=== PATIENT | male | born 1955 | race Caucasian/White ===

== ENCOUNTER 2022-04-15 08:00 | Observation (INO) ==
--- NOTE | 2022-03-16 14:12 | PAT Medication Instructions ---
Medication Instructions Date of Service March 16, 2022 Home Medications Medication Instructions Recorded Sadiq Timmons #1 ea 02/23/22 amlodipine 10 mg tablet 10 mg PO QAM fenofibrate nanocrystallized 145 mg tablet 145 mg PO QAM losartan 100 mg tablet 100 mg PO QAM montelukast 10 mg tablet 10 mg PO QAM naproxen sodium 220 mg capsule 220 mg PO BID PRN Pain omeprazole 20 mg capsule,delayed release 20 mg PO DAILY pravastatin 40 mg tablet 40 mg PO QAM albuterol sulfate 90 mcg/actuation aerosol inhaler 2 inh inhalation Q4H PRN Wheezing cetirizine 10 mg tablet 10 mg PO HS STOP taking 48 hours before surgery fenofibrate nanocrystallized 145 mg tablet 145 mg PO QAM DO NOT take the morning of surgery losartan 100 mg tablet 100 mg PO QAM montelukast 10 mg tablet 10 mg PO QAM Take morning of surgery With a small sip of water, OTHERWISE NOTHING TO EAT OR DRINK AFTER MIDNIGHT: amlodipine 10 mg tablet 10 mg PO QAM omeprazole 20 mg capsule,delayed release 20 mg PO DAILY pravastatin 40 mg tablet 40 mg PO QAM albuterol sulfate 90 mcg/actuation aerosol inhaler 2 inh inhalation Q4H PRN Wheezing (use if needed; please bring rescue inhaler with you to hospital day of surgery if possible) Take evening before surgery albuterol sulfate 90 mcg/actuation aerosol inhaler 2 inh inhalation Q4H PRN Wheezing (if needed) cetirizine 10 mg tablet 10 mg PO HS Other Notes If you have any questions please call us at [phone] or [phone] or [phone] or [phone]
--- NOTE | 2022-03-23 10:59 | Anesthesiology Consultation ---
Date of Service March 23, 2022 Assessment & Plan (1) Encounter for pre-operative examination: - COVID screening: Per assessment on 03/23: No known COVID-19 positive contacts or current COVID-19 related symptoms. Travel screen negative. Patient vaccinated. At surgeon discretion if preop Covid testing being done. - Outpatient joint assessment: Pt currently scheduled for inpatient pathway. If surgeon requests review for outpatient joint pathway, patient is not recommended candidate for outpatient joint program from anesthesia standpoint. Chart Review Chart Review: Acceptable Risk for Surgery and Patient seen in Pre Admission Testing Teaching & Discussion Pre-Anesthesia Teaching/Discussion Notes: Instructed NPO after midnight before surgery,except medications with 15 cc of water. Medication instructions provided according to the PAT guidelines. History Surgery Operation Date: 04/15/22 11:00 Proposed Procedures p Left Total Knee Arthroplasty - Sai Pressley MD Height/Weight Height: 5 ft 10 in Weight: 124.7 kg Allergies Allergy/AdvReac Type Severity Reaction Status Date / Time No Known Allergies Allergy Verified 03/04/22 09:49 Medications Home Medications Medication Instructions Recorded Confirmed Last Taken Wheeled Walker #1 ea 02/23/22 02/23/22 Unknown amlodipine 10 mg tablet 10 mg PO QAM 02/23/22 03/04/22 Unknown fenofibrate nanocrystallized 145 145 mg PO QAM 02/23/22 03/04/22 Unknown mg tablet losartan 100 mg tablet 100 mg PO QAM 02/23/22 03/04/22 Unknown montelukast 10 mg tablet 10 mg PO QAM 02/23/22 03/04/22 Unknown naproxen sodium 220 mg capsule 220 mg PO BID PRN Pain 02/23/22 03/04/22 Unknown omeprazole 20 mg capsule,delayed 20 mg PO DAILY 02/23/22 03/04/22 Unknown release pravastatin 40 mg tablet 40 mg PO QAM 02/23/22 03/04/22 Unknown albuterol sulfate 90 mcg/actuation 2 inh inhalation Q4H PRN Wheezing 03/04/22 03/04/22 Unknown aerosol inhaler cetirizine 10 mg tablet 10 mg PO HS 03/04/22 03/04/22 Unknown Past Medical History Medical History Asthma Stable Diabetes Per [facility] PCP records, diet controlled DM hgba1c 6.6% 09/2021 GERD (gastroesophageal reflux disease) High cholesterol Hypertension Left knee DJD Neuropathy Legs Obesity Sleep apnea CPAP (compliant) Exercise / Class Metabolic Activity II 4-5 Yardwork/Stairs/Walk up hill Past Family History Family History Other Heart disease Past Surgical History Surgical History H/O arthroscopy of left knee History of bilateral carpal tunnel release History of cataract surgery R/L History of colonoscopy History of esophagogastroduodenoscopy (EGD) History of nasal surgery History of shoulder surgery R/L Hx laparoscopic cholecystectomy Past Anesthesia History No Family Hx of Anesthesia Complications and Other ("Combative" with anesthesia emergence with cholecystectomy) History of PONV No Hx of PONV and No Hx of Motion Sickness Social History Smoking Status: Current every day smoker tobacco type: pipe Smoking cigarettes per day: Smokes pipe daily Do You Dip or Chew Tobacco: No Hx Alcohol Use: Yes (Occasional) Hx Substance Use: No Review of Systems Chronic post nasal drip x several years since deviated septum repair- results in chronic, intermittent cough. Patient denies chest pain, shortness of breath, dyspnea on exertion, fever, chills, wheezing, palpitations. Physical Exam Vital Signs VITALS BP 157/75 P 74 TEMP 98.4 SP02 94%RA RESP 16 PHYSICAL Full cervical extension range of motion. Full TMJ range of motion. TMD 3.5 finger breaths Mallampati Score 3 Dentition: missing sides Lungs: clear throughout to auscultation Cardiac: regular rate and rhythm, no murmurs noted Spine: normal Carotid arteries: negative bruit Extremities: no edema Thick neck Lab Results Anesthesia Preop Results Results Anesthesia Widget: WBC 7.88 K/ul (4.8-10.8) 03/23/22 Hgb 14.2 g/dl (14.0-18.0) 03/23/22 Hct 41.9 % (40.1-51.0) 03/23/22 Plt 216 K/uL (130-400) 03/23/22 Na 137 mmol/L (136-145) 03/23/22 K 3.7 mmol/L (3.5-5.1) 03/23/22 Cl 102 mmol/L (98-107) 03/23/22 CO2 27 mmol/L (21-32) 03/23/22 BUN 16 mg/dl (6-23) 03/23/22 Creat 0.99 mg/dl (0.6-1.4) 03/23/22 Glucose Level 226 mg/dl (70-99(Fasting)) H 03/23/22 PT 10.9 Seconds (9.0-12.0) 03/23/22 PTT 26.5 Seconds (21.0-31.0) 03/23/22 INR 1.0 (0.9-1.1) 03/23/22 Blood Type B Positive 03/23/22 Antibody Screen NEGATIVE 03/23/22 Testing Laboratory Results 09/25/21 HGBA1C 6.6% Electrocardiogram Date: 03/23/22 Findings: + NSR @ (79) Chest X-Ray Date: 03/23/22 Findings: + NAD COVID-19 Risk Screen Screening Information COVID-19 Screen Date: 03/23/22 Exposure 21 Days Family/Household +COVID Last 21 Days: No Exposure 10 Days Any COVID Exposure Last 10 Days: No Symptoms Last 10 Days Experienced COVID Sx Last 10 Days: No + COVID 0-90 Days COVID + in Last 0-90 Days: No
--- NOTE | 2022-04-11 15:52 | History and Physical Report ---
DATE OF ADMISSION: 04/15/2022. CHIEF COMPLAINT: Persistent left knee pain and discomfort. HISTORY OF PRESENT ILLNESS: The patient is a 67-year-old gentleman who now presents for surgical brooke atment of his left knee. He has got a gradual progressive increased pain and discomfort in his left knee over the past 5 years. He did have his knee scoped by Dr. Oreilly back in 2008. It helped him for about a year and describes mostly medial and anterior pain. He takes Aleve with minimal b enefit. He now presents specifically for surgical treatment. He has got chronic pain and just wants to have this fixed. PAST MEDICAL HISTORY: 1. Hypertension. 2. Elevated cholesterol. PAST SURGICAL HISTORY: Includes; 1. Nasal surgery. 2. Bilateral carpal tunnel release. 3. Right shoulder surgery. 4. Left knee scope in 2008. 5. Right wrist surgery. 6. Cholecystectomy. 7. Fatty tumor removed from his colon, 2015. 8. Left shoulder surgery, 2018 9. Cataract surgery. ALLERGIES: None. CURRENT MEDICATIONS: 1. Naproxen. 2. Omeprazole. 3. Montelukast. 4. Fenofibrate. 5. Losartan. 6. Amlodipine. 7. Pravastatin. SOCIAL HISTORY: A 67-year-old male. Lives in [place]. He is retired. He used to work in [employer]. . Rare alcohol intake. Smokes a pipe several times a day. FAMILY HISTORY: Significant for heart disease. REVIEW OF SYSTEMS: Negative for diabetes, neurologic problem, vascular problem, or bleeding disorder s. No chest pain or shortness of breath. No DVT or PE. He does smoke a pipe. PHYSICAL EXAMINATION: GENERAL: Shows a healthy, pleasant middle-aged male. Looks to be in pretty good health. HEENT: Benign. NECK: Supple. No lymphadenopathy. LUNGS: Clear to auscultation. HEART: Regular rate and rhythm. ABDOMEN: Soft, nontender, nondistended. EXTREMITIES: Grossly neurovascularly intact except as follows. Examination of the left knee reveals the patient ambulates with a slight bit of a limp. He has got v arus alignment to his knee with a little bit of varus thrust with weightbearing. He has got bony hyp ertrophy medially. Small knee effusion. Well-healed arthroscopic portal sites. Range of motion is about 5-125. No instability. X-RAYS: X-rays of left knee are reviewed. It shows advanced left knee degenerative joint disease. He has got tricompartment disease. He has got osteophytes, primarily medially. He has got complete loss of medial joint space. A little bit of subluxation of his patella. It does look like his probably translated a little bit anterior on the femur. ASSESSMENT: A 67-year-old male with a chronic ACL deficient knee and advanced knee arthritis. He does have a his tory of knee arthroscopy in the past. He failed conservative measures and would like to have his kne e replaced. PLAN: We will take him to the operating room and do left total knee replacement. Risks and benefits of procedure were explained to the patient and include but not limited to DVT, PE, , infection, neurological injury, vascular injury, bleeding problem, pain, limited motion, stiffness, failure to relieve symptoms, incomplete relief of symptoms, etc. The patient understands and desires to proceed . Informed consent was obtained. His blood glucose was high on his preoperative lab testing. We have him get together with his medica l doctor to get this under better control. Job ID: [id number]
[~2022-04-15 08:00] MED LIST: ACETAMINOPHEN 500 MG TAB PO SCH; BUPIVACAINE 0.5 % 5 MG/1 ML PF 10ML VIAL ONE; BUPIVACAINE LIPOSOME/PF 266 MG, BUPIVACAINE/EPINEPHRINE 50 ML, SODIUM CHLORIDE 0.9% 30 ... INFIL SCH; CeleBREX 200 MG CAP PO SCH; FAMOTIDINE 20 MG TAB PO SCH; LR 500ML BOLUS, THEN 15ML/HR IV SCH; LR 60ML/HR IV SCH; METOCLOPRAMIDE HCL 10 MG TABLET PO SCH; ROPIVACAINE 0.5% 5 MG/ML 30 ML VIAL ONE; Scopolamine 1 MG TDSY TD SCH; TRANEXAMIC ACID 1,000 MG **IV Intra-op IV SCH
--- NOTE | 2022-04-15 08:39 | History & Physical Bridge Note ---
Date of Service April 15, 2022 History & Physical Bridge Note I have examined the patient, reviewed the History & Physical and in the interval since the performance of the History & Physical I have noted the following changes of clinical significance: no changes noted
[2022-04-15] MEDS ORDERED: KETOROLAC 30 MG/ML VIAL IV PRN (09:41)
[2022-04-15] MEDS ORDERED: ePHEDrine sulfate 50 MG/ML AMP IV PRN (09:41)
[2022-04-15] MEDS ORDERED: ONDANSETRON INJ 2 MG/ML 2 ML VIAL IV PRN ×2 (09:41→14:10)
[2022-04-15] MEDS ORDERED: ATROPINE SULFATE 0.1 MG/ML 10ML SYR IV PRN (09:41)
[2022-04-15] MEDS ORDERED: HYDROmorphone INJ 1 MG/ML SYRINGE IV PRN ×2 (09:41→14:10)
[2022-04-15] MEDS ORDERED: MIDAZOLAM HCL 1 MG/ML 2ML VIAL ONE ×2 (10:10→10:13)
[2022-04-15] MEDS ORDERED: fentaNYL citrate 100 MCG/2 ML VIAL ONE (10:10)
[2022-04-15] MEDS ORDERED: PROPOFOL IV EMULSION 10 MG/ML 20 ML VIAL IV ONE ×6 (10:10→11:30)
[2022-04-15] MEDS ORDERED: BUPIVACAINE LIPOSOME 1.3% 266 MG/20 ML VIAL ONE (10:27)
[2022-04-15] MEDS ORDERED: BUPIVACAINE/EPINEPHRINE 0.25% 1:200,000 30 ML VIAL ONE (10:27)
[2022-04-15] MEDS ORDERED: SODIUM CHLORIDE 0.9% PF 50 ML VIAL ONE (10:27)
[2022-04-15] MEDS ORDERED: GLYCOPYRROLATE 0.2 MG/ML VIAL ONE (10:55)
[2022-04-15] MEDS ORDERED: LIDOCAINE 2% MPF LOCAL 5 ML VIAL INFIL ONE (10:56)
[2022-04-15] MEDS ORDERED: PHENYLEPHRINE HCL 10 MG/ML VIAL ONE (12:07)
--- NOTE | 2022-04-15 12:33 | Operative Report ---
PG Post Operative Report Pre & Post Diagnosis Operation Date: 04/15/22 10:40 Pre-Op Diagnosis: Left Knee Degenerative Joint Disease Post-Op Diagnosis: Left Knee Degenerative Joint Disease I identified the patient and participated in the time-out.: Yes Procedure Operation Date: 04/15/22 10:40 Actual Procedures p Left Total Knee Arthroplasty(Left) - Sai Pressley MD Surgeon Sai Pressley MD Semiconductor Processing Technician Mauricio Izaguirre PA-C Estimated Blood Loss 50 Findings Consistent with Post-Op Diagnosis Operative findings were advanced left knee DJD. He had extensive grade 4 [id number] disease of the medial and patellofemoral compartments. Moderate soft tissue envelope. Osteophytes in all 3 compartments. Moderate-sized joint effusion. Fluids 1200 cc Specimens Left knee sent for pathology Drains None Anesthesia Type Spinal MAC Complications none Disposition Accompanied Patient To Recovery: No Indications Patient is a 67-year-old gentleman is had a long history of left knee pain discomfort describes gotten worse over the past several years. He has been through extensive conservative treatment which became less successful over time. He elected proceed with total knee arthroplasty. Description of Procedure Operative implants consist of: 1 Biomet Vanguard size 70 left posterior stabilized femoral component. 2. Biomet size 79 tibial tray. 3. 10 mm posterior stabilized polyethylene insert. 4. 31 x 8 all Paller patella. The patient was taken the operating, identified, and placed on the operating table supine position protectors were properly padded. IV antibiotics by anesthesia team. A spinal anesthetic and abductor canal block had been provided in the holding area. Oliver catheter was placed in sterile fashion. Left atrium was then placed in the left lower extremity then prepped draped in usual sterile fashion. The left leg was elevated exsanguinated with use of an Esmarch and the tourniquet was set at 300 mmHg. An anterior approach to the left knee was then performed through a longitudinal incision centered over the patella. Sharp d issection was carried through subcutaneous tissue down the extensor mechanism. A medial parapatellar arthrotomy incision was made. Some subperiosteal dissection was carried out medially. The fat pad was resected from Neath patella tendon. Lateral patellofemoral ligament was released. Patella subluxated laterally and the knee was flexed. The osteophytes taken off distal femur. ACL and PCL then released from distal femur the tibia subluxated anteriorly. The external tibial alignment jig was then placed the interface the tibia and adjusted 14 mm medially. Proximal tibial cut was made essentially flush with the most deficient aspect of the medial tibial plateau. Some osteophytes taken off medial and posterior medially. Tibia sized to a size 79. Attention drawn the femur. The distal femur during the sharp drill bit intramedullary canal was suction. A left 6 degree valgus cutting guide was placed. Distal femoral cutting block was pinned in place. Distal femoral cut was made to take an additional 3 mm bone off distal femur. The femur was then sized to a size 70. The AP cutting block was pinned parallel to the epicondylar axis which was 6 degrees of external rotation. The anterior cut, anterior chamfer, posterior cut, posterior chamfer cuts were made. The box cutting guide was placed in just slight lateral box cut was made. The knee was flexed. The remnants of the medial and lateral menisci were excised. The osteophytes taken off the posterior aspect of the femur. A trial femoral component was placed. The tibial tray was pinned in maximum external rotation and the drill and stem punch were used to create defect in proximal tibia for the tibial tray. Knee was then trialed and the 10 mm insert fit most appropriately. Attention drawn the patella. The patella was cleaned of all soft tissues. Patella thickness measured 25 mm in thickness was cut down to 15. It was sized to a size 31 patella. The lug holes were drilled for the 31 patella. The lateral osteophyte was removed. The patella button was placed. Knee was taken through range of motion patella tracked nicely with no thumbs test. Attention drawn toward placing the permanent components. Nupathe all trial components were removed. Bone plug was placed in the distal femur limit blood loss. Double batch Palacos G cement was mixed. Biomet Vanguard size 70 left posterior stabilized femoral component, size 79 tibial tray, 10 mm posterior stabilized polyethylene insert, and a 31 x 8 all Paller patella then cemented in place. Knee was brought out in full extension total cement hardened. Final cement check was then performed. Pericapsular tissues were injected with total 100 cc of combination of 20 cc of Exparel, 30 cc normal saline, 50 cc of quarter percent Marcaine with epine phrine. Patient did receive 1 g tranexamic acid. The tourniquet was let down for final turn time 59 minutes but hemostasis surgeons electrocautery. Extensor mechanism closed with combination 1 PDS suture #1 Vicryl suture in [id number] fashion. Extensor mechanism checked found to be intact the subcutaneous tissue then closed with 2 Dexon suture in buried fashion skin was closed skin claribel. Leg was then cleaned and dried a sterile dressing was Xeroform, 4 x 4's, sterile cast padding, Jer bandage were applied. Patient then transferred to recovery in stable condition. Patient tolerated the procedure well and there are no complications. Mauricio Izaguirre, my physician assistant director of nursing, was present for the entire procedure. His assistance was essential and required for appropriate patient positioning, prepping and draping, surgical exposure, performing the technical details of the operation, placement the implants, closure of the wound, and placement of the sterile bandage. I attest to the content of the Intraoperative Record and any orders documented therein. Any exceptions are noted below.
--- NOTE | 2022-04-15 13:42 | XRay Report ---
TWO VIEWS LEFT KNEE CLINICAL HISTORY: Postoperative examination. FINDINGS: AP and crosstable lateral portable views of the left knee are obtained. A left knee arthrop lasty is in near anatomic alignment. There has been undersurface remodeling of the patella. No acute fracture is seen. There are expected postoperative changes around the knee including skin clips, soft tissue edema, and subcutaneous gas. IMPRESSION: Expected postoperative changes status post left knee arthroplasty. No acute fracture is s een. ACT 112: Negative or not required by law. Electronically signed by: Daniel Alejandra M.D. 04/15/2022 1:41 PM
[2022-04-15] MEDS ORDERED: METOCLOPRAMIDE HCL INJ 5 MG/ML 2 ML VIAL IV PRN (14:10)
[2022-04-15] MEDS ORDERED: bisacodyL 10 MG SUPP PR PRN (14:10)
[2022-04-15] MEDS ORDERED: ALBUTEROL HFA 8 GM INHALER INH PRN (14:10)
[2022-04-15] MEDS ORDERED: diphenhydrAMINE Capsule 25 MG CAP PO PRN (14:10)
[2022-04-15] MEDS ORDERED: oxyCODONE HCL IR 5 MG TAB (IMMEDIATE RELEASE) PO PRN (14:10)
[2022-04-15] MEDS ORDERED: NALOXONE HCL 0.4 MG/1 ML VIAL/CARP IV PRN (14:10)
[2022-04-15] MEDS ORDERED: MAGNESIUM HYDROXIDE SUSP 30 ML UDC PO PRN (14:10)
[2022-04-15] MEDS ORDERED: ALUMINUM/MAGNESIUM SUSP 30 ML UDC PO PRN (14:10)
[2022-04-15] MEDS: SODIUM CHLORIDE 0.9% 1000ML 1,000 ML IV SCH (14:39)
[2022-04-15] MEDS: KETOROLAC TROMETHAMINE 15 MG/ML VIAL IV SCH ×2 (16:19→22:28)
[2022-04-15] MEDS: ACETAMINOPHEN 500 MG TAB PO SCH (16:19)
[2022-04-15] MEDS: Scopolamine CHECK PATCH PLACEMENT SCH (16:19)
[2022-04-15] MEDS: ceFAZolin 2000MG 2,000 MG/15 ML SYR IV SCH (17:53)
[2022-04-15] MEDS: ASCORBIC ACID 500 MG TAB PO SCH (18:16)
[2022-04-15] MEDS ORDERED: TRANEXAMIC ACID / 0.7% NACL 1,000 MG/100 ML BAG IV SCH (18:30)
[2022-04-15] MEDS ORDERED: CETIRIZINE HCL 10 MG TABLET PO SCH (21:00)
[2022-04-15] MEDS ORDERED: SENNA 8.6 MG TAB PO SCH (21:00)
[2022-04-15] MEDS: ASPIRIN 81 MG ECTAB PO SCH (22:27)
[2022-04-15] MEDS: DOCUSATE SODIUM 100 MG CAP PO SCH (22:28)
[2022-04-15] MEDS: TAPENTADOL HCL ER 50 MG TABCR PO SCH (22:31)
[2022-04-16] MEDS: ACETAMINOPHEN 500 MG TAB PO SCH ×2 (00:45→06:17)
[2022-04-16] MEDS: Scopolamine CHECK PATCH PLACEMENT SCH ×2 (00:47→08:35)
[2022-04-16] MEDS: SODIUM CHLORIDE 0.9% 1000ML 1,000 ML IV SCH (00:48)
[2022-04-16] MEDS: ceFAZolin 2000MG 2,000 MG/15 ML SYR IV SCH (03:07)
[2022-04-16] MEDS: KETOROLAC TROMETHAMINE 15 MG/ML VIAL IV SCH ×2 (03:07→08:32)
[2022-04-16 06:13] LABS: Hematocrit (blood only) 34.7 % (40.1-51.0); Hemoglobin 11.4 g/dl (14.0-18.0); Mean Corpuscular Hemoglobin 28.1 pg (25.0-34.0); Mean Corpuscular Hgb Conc 32.9 g/dL (32.0-36.0); Mean Corpuscular Volume 85.5 fL (80.0-100.0); Mean Platelet Volume 10.5 fL (9.4-12.4); Platelet Count 190 K/uL (130-400); Red Blood Count 4.06 M/uL (4.63-6.08); White Blood Count 9.26 K/ul (4.8-10.8)
[2022-04-16 06:43] LABS: BUN Creatinine Ratio 16.4 (10-20); Calcium 8.3 mg/dl (8.5-10.1); Creatinine Clr Calc Pharmacy 87.8 ml/min; Est GFR (African American) 80.6 ml/min; Est GFR (Non-African American) 69.6 ml/min
--- NOTE | 2022-04-16 07:42 | Progress Notes ---
DATE OF PROGRESS NOTE: 04/16/2022 SUBJECTIVE: A 67-year-old gentleman, postoperative day 1 from a left knee replacement. He is doing pretty well. Had a pretty good night. Pain is controlled. Denies any chest pain or shortness of br eath. He is hoping to go home. OBJECTIVE: VITAL SIGNS: Temperature is 36.6. Vital signs are stable. PHYSICAL EXAMINATION: GENERAL: Shows a pleasant middle-aged male. He is sitting up in his bed. He is awake, alert, orien shaniqua, and looks comfortable. LUNGS: Clear to auscultation. HEART: Has a regular rate and rhythm. ABDOMEN: Soft, nontender, and nondistended. EXTREMITIES: Grossly neurovascularly intact except as follows. Examination of the left knee reveals the leg to be well aligned. Dressing is clean, dry, and intact. He can dorsiflex and plantarflex his foot appropriately. He is neurologically intact. LABORATORY DATA: Hemoglobin 11.4. Hematocrit 34.7. Electrolytes are stable. ASSESSMENT: A 67-year-old male postoperative day 1 from left knee replacement, doing pretty well. P ain is controlled. He is neurologically intact, but hoping to go home. PLAN: 1. DVT prophylaxis includes thigh-high TEDs, SCDs, and aspirin twice a day for 6 weeks. 2. PT, OT, and weightbear as tolerated. Left total knee protocol. 3. Pain control, doing okay with current pain regimen. 4. Disposition: Plan to discharge to home with some home health if he does okay in therapy today. Job ID: [id number]
[2022-04-16] MEDS ORDERED: dexAMETHasone 10 MG in SYRINGE 0 ML IV SCH (08:00)
[2022-04-16] MEDS: ASCORBIC ACID 500 MG TAB PO SCH (08:32)
[2022-04-16] MEDS: ASPIRIN 81 MG ECTAB PO SCH (08:34)
[2022-04-16] MEDS: DOCUSATE SODIUM 100 MG CAP PO SCH (08:34)
[2022-04-16] MEDS: TAPENTADOL HCL ER 50 MG TABCR PO SCH (08:35)
[2022-04-16] MEDS ORDERED: LOSARTAN POTASSIUM 50 MG TAB PO SCH (09:00)
[2022-04-16] MEDS ORDERED: PRAVASTATIN SOD 40 MG TAB PO SCH (09:00)
[2022-04-16] MEDS ORDERED: MULTIVITAMIN TAB PO SCH (09:00)
[2022-04-16] MEDS ORDERED: TAMSULOSIN HCL 0.4 MG CAP PO SCH (09:00)
[2022-04-16] MEDS ORDERED: FENOFIBRATE NANOCRYSTALLIZED 145 MG TABLET PO SCH (09:00)
[2022-04-16] MEDS ORDERED: amLODIPine BESYLATE 5 MG TAB PO SCH (09:00)
[2022-04-16] MEDS ORDERED: MONTELUKAST SODIUM 10 MG TABLET PO SCH (09:00)
[2022-04-16] MEDS ORDERED: DOCUSATE SODIUM/SENNA 50/8.6MG TAB PO SCH (09:00)
[2022-04-16] MEDS ORDERED: PANTOprazole 40 MG TAB PO SCH (09:00)
--- NOTE | 2022-04-17 12:39 | Anesthesiology Progress Note ---
Date of Service April 17, 2022 Anesthesia Post Procedure Pain Intensity Left Knee: Pain Intensity: 5 Transfer of Care Handoff Completed per policy Notes Mental Status: alert / awake / arousable Patient Amnestic to Procedure: Yes Nausea / Vomiting: adequately controlled Pain: adequately controlled Airway Patency, RR, SpO2: stable & adequate BP & HR: stable & adequate Hydration State: stable & adequate Anesthetic Complications: no major complications apparent
--- NOTE | 2022-04-19 07:07 | Discharge Summary ---
Date of Service April 19, 2022 Discharge Data Procedures Performed Operation Date: 04/15/22 10:40 Actual Procedures p Left Total Knee Arthroplasty(Left) - Sai Pressley MD Hospital Course (1) Status post total left knee replacement: This is a 67 year old patient admitted on 04/15/22 and underwent total knee arthroplasty. He tolerated the procedure well and there were no complications. Transferred to the PACU post op and later to the orthopedic floor for further care. He was given ancef for antibiotic prophylaxis. He was also given LORI stockings, SCDs, and aspirin for DVT prophylaxis. Hemoglobin, hematocrit, and vital signs were monitored during his hospital stay and remained stable. Did not require any blood transfusions. There were no complications during his hospital stay. By post op day #1 the patient was tolerating a regular diet, pain was reasonably controlled with oral pain medicine, and he was participating in physical therapy. On post op day #1 the patient was discharged home and set up with home health care. He was given printed discharge instructions including prescriptions for extra strength tylenol, aspirin, ketorolac, cefadroxil, zofran, senokot, flomax, and oxycodone. Continue physical therapy, weight bearing as tolerated. Continue LORI stockings. Follow up approximately 2 weeks post op or sooner if there are problems or concerns. Coding Level of Care Code None Diagnoses Status post total left knee replacement Z96.652
== END 2022-04-16 14:08 | disposition home health service (06) ==
LOC: ASU 08:00 → 3N 08:00